=== PATIENT | male | born 1950 | race Caucasian/White ===

== ENCOUNTER → 2023-03-29 | Emergency (ER) | payer OTHER ==
[~2023-03-29] MED LIST: ETOMIDATE 20 MG/10 ML VIAL IV ONE; LABETALOL 20 MG/4ML SYRINGE IV ONE; MANNITOL 20% 500 ML IV ONE; NA CHLORIDE 0.9% 250 ML ONE; ROCURONIUM 50 MG/5 ML VIAL IV ONE; dilTIAZem HCL 25 MG/5 ML VIAL IV ONE; propofoL 1,000 MG/100 ML VIAL IV ONE
--- NOTE | 2023-03-29 18:21 | RAD REPORT ---
EXAM DESCRIPTION: CT - Ct Stroke Brain Wo Cont - 03/29/2023 6:09 pm CLINICAL HISTORY: STROKE ALERT COMPARISON: No comparisons TECHNIQUE: Noncontrast head CT images were obtained without IV contrast. Multiplanar reformats were generated and reviewed. All CT scans are performed using dose optimization technique as appropriate and may include automated exposure control or mA/KV adjustment according to patient size. FINDINGS: Parenchymal hematoma centered on the left parietal regions with adjacent all cytotoxic lily ma. Mass effect with partial effacement of the left lateral ventricle. Mild rightward midline shift, measuring approximately 4 mm. No intraventricular hemorrhage or abnormal extra-axial fluid collections. Midline structures are othe rwise unremarkable. No other evidence of herniation. Mastoid air cells and visualized portions of the paranasal sinuses are clear. No acute bony findings. IMPRESSION: Left parietal parenchymal hemorrhage with adjacent cytotoxic edema and mass effect as ab ove. 4 mm rightward midline shift. Findings may relate to hemorrhagic transformation of infarct. The findings were communicated to Garrett Page on 03/29/2023 at 18:14 hours.
[2023-03-29 18:27] LABS: Absolute Lymphocytes (CBC) 0.7 K/uL (0.7-4.9); Hematocrit 53.9 % (39.6-49.0); Lymphocytes % 4.9 % (15.3-44.8); MCV 84.2 fL (80-100); MPV 8.1 fL (7.6-11.3); Platelets 199 thou/uL (152-406)
--- NOTE | 2023-03-29 18:32 | ER ---
Nurse's Notes [facility] Name: Adrian Sorto Age: 72 yrs Sex: Male : 1950 Arrival Date: 03/29/2023 Time: 17:52 Bed 3 Private MD: Diagnosis: Intraparenchymal intracranial hemorrhage, hypertensive urgency, headache Presentation: 03/29 17:59 Chief complaint: Chief complaint: Spouse and/or significant other states: Was working ph under house approx 1 hour ago, began c/o severe R sided headache, pt found to be confused by , in triage pt unable to states current date or date, talking about unrelated things, continues to c/o headache and nausea, code stroke called overhead. 17:59 Method Of Arrival: Wheelchair ph 18:29 Coronavirus screen: Vaccine status: Patient reports receiving the 2nd dose of the covid ph vaccine. Ebola Screen: No symptoms or risks identified at this time. Initial Sepsis Screen: Does the patient meet any 2 criteria? No. Patient's initial sepsis screen is negative. Does the patient have a suspected source of infection? No. Patient's initial sepsis screen is negative. Risk Assessment: Do you want to hurt yourself or someone else? Patient reports no desire to harm self or others. Onset of symptoms was March 29, 2023. 18:29 Acuity: NOY 2 ph Historical: - Allergies: 18:31 No Known Allergies; ph - Immunization history:: Adult Immunizations unknown. - Social history:: Smoking status: unknown. Screenin:10 [facility] ED Fall Risk Assessment (Adult) Score/Fall Risk Level 0 - 2 = Low Risk. Abuse as6 screen: Denies threats or abuse. Denies injuries from another. Nutritional screening: No deficits noted. Tuberculosis screening: No symptoms or risk factors identified. Assessment: 18:05 General: General: Code stroke called overhead from triage. . kd3 18:10 General: This RN met the patient in the CT scanner to start an IV and draw some lab kd3 work. CT scan showed what appeared to be a bleed. field tech called radiologist to inform/notify of possible bleed. Pt returned to the room for further evaluation. . 18:15 General: IV access obtained in the right A/c. Blood work sent to the lab at this time. .kd3 18:15 General: Appears well groomed, well developed, well nourished, Behavior is cooperative, me1 appropriate for age, anxious, Reports and son report that patient was under the house working and developed a bad headache about an hour before they got here. Pain: Complains of pain in head Pain does not radiate. Pain currently is 10 out of 10 on a pain scale. Quality of pain is described as throbbing, Pain began suddenly, 1 hour ago. Is continuous. Neuro: Level of Consciousness is awake, alert, obeys commands, Oriented to person, situation, Manager Of Product are equal bilaterally Moves all extremities. Full function Gait is steady, Speech with expressive aphasia noted, Facial symmetry appears normal, Pupils are PERRLA, Intact. Cardiovascular: Capillary refill < 3 seconds Patient's skin is warm and dry. Respiratory: Airway is patent Respiratory effort is even, unlabored, Respiratory pattern is regular, symmetrical. 18:17 General: EKG performed in the room by air quality technician . kd3 18:45 General: General: Pt HR on the monitor reading 34, pt became increasingly diaphoretic kd3 and had + LOC. Pt blood pressure had been trending downward up until this point. Provider notified of pt's sudden change in status. Plan to immediately move the patient to the trauma bays for rapid intubation. . 18:47 Reassessment: Pt moved from ER 17 to ER 3. . aa5 18:47 Reassessment: Pt appears pale, shallow relaxed respirations, pt able to speak at this aa5 time. Pt notified of need for intubation by Dr. Sethi. . 18:50 General: Pt being intubated at this time for airway protection. . cm10 18:50 General: Appears Etomidate 20mg IVP . cm10 18:50 General: Rocuronium 80mg IVP. cm10 19:09 Respiratory: Ventilator assessment: ET Tube: 8.0 Ventilator Mode: Assist Control (AC) as6 Tidal Volume: 500 Respiratory Rate: 20 FiO2: 100%. PEEP: 5 HOB > 30 degrees. 19:09 Neuro: [place] Agitation-Sedation Scale (RASS): -2 Light sedation. as6 19:43 General: life flight at bedside, taking over care . as6 Vital Signs: 18:12 BP 192 / 99; Pulse 66; Resp 18; Temp 97.9(O); Pulse Ox 99% ; kd3 18:15 BP 174 / 109; Pulse 69; Resp 18; Pulse Ox 98% on R/A; kd3 18:31 BP 126 / 66; Pulse 61; Resp 14; Pulse Ox 96% on R/A; kd3 18:32 Weight 72.57 kg; Height 5 ft. 8 in. ; me1 18:48 BP 172 / 81; Pulse 69; Resp 12 S; Pulse Ox 100% on Non-rebreather mask; aa5 18:59 BP 169 / 85; Pulse 67; Resp 14; Pulse Ox 100% ; ld1 19:04 BP 155 / 82; Pulse 62; Pulse Ox 100% on ETT ambu; aa5 19:06 BP 155 / 82; Pulse 57; Resp 20 A; Pulse Ox 100% on ETT vent; FiO2 100 %; as6 19:10 BP 150 / 75; Pulse 59; Pulse Ox 98% on ETT vent; aa5 19:20 BP 200 / 95; Pulse 69; Resp 19 A; Pulse Ox 100% on ETT vent; FiO2 100 %; as6 19:30 BP 209 / 115; Pulse 76; Resp 19 A; Pulse Ox 100% on ETT vent; FiO2 100 %; as6 19:34 BP 193 / 97; Pulse 81; Resp 19 A; Pulse Ox 100% on ETT vent; FiO2 100 %; as6 18:32 Body Mass Index 24.33 (72.57 kg, 172.72 cm) me1 Napoleon Coma Score: 18:15 Eye Response: spontaneous(4). Motor Response: obeys commands(6). Verbal Response: kd3 confused(4). Total: 14. NIH Stroke Scale Scores: 18:17 NIHSS Score: 3 kd3 ED Course: 17:55 Patient arrived in ED. ae5 18:03 Ene Sethi MD is Attending Physician. sp3 18:09 CT Stroke Brain w/o Contrast In Process Unspecified. EDMS 18:12 Isabell Chawla, JESSICA is Primary Nurse. me1 18:15 Initial lab(s) drawn, by me, sent to lab. aa5 18:15 Inserted saline lock: 20 gauge in right Blood collected. kd3 18:24 Inserted saline lock: 18 gauge in left forearm, using aseptic technique. ds4 18:31 Triage completed. ph 18:31 Arm band placed on Patient placed in an exam room. ph 18:44 Stroke CXR 1 View In Process Unspecified. EDMS 18:55 Assisted provider with intubation using 8.0 mm ETT via oral route. ET tube secured at ld1 22cm at the teeth. Set up intubation tray. Intubated by Ene Sethi MD Placement verified by CO2 detector w/ + color change, Patient tolerated well. 18:59 Hankins cath inserted, using sterile technique, 16 Fr., by rabble furnace tender, balloon inflated. ld1 19:00 16fr OG tube inserted. ld1 19:10 Chest Single View XRAY In Process Unspecified. EDMS 19:10 Placed in gown. Bed in low position. Call light in reach. Adult w/ patient. Provided as6 Education on: need for transfer . 19:39 Patient transferred, IV remains in place. as6 Administered Medications: 18:20 Drug: Labetalol IV 10 mg IV at calculated rate once Route: IV; Rate: calculated rate; me1 Site: right antecubital; 19:45 Follow up: Response: No adverse reaction; IV Status: Completed infusion; IV Intake: 2ml as6 18:43 Drug: Mannitol IV 20% 1 g/kg 500 ml IV at calculated rate once; Administer over 30 to ld1 60 minutes Volume: 500 ml; Route: IV; Rate: calculated rate; Site: right forearm; 19:47 Follow up: Response: No adverse reaction; IV Status: Completed infusion; IV Intake: as6 500ml 18:50 Drug: Etomidate IVP 20 mg IVP once Route: IVP; Site: left forearm; ld1 19:45 Follow up: Response: No adverse reaction as6 18:50 Drug: Rocuronium IVP 80 mg IVP once Route: IVP; Site: left forearm; ld1 19:45 Follow up: Response: No adverse reaction as6 18:58 Drug: Propofol IV 5 mcg/kg/min IV at calculated rate See Administration Instructions; ld1 Standard concentration 1000 mg / 100 mL; Recommended max rate 50 mcg/kg/min; Titrate 2 mcg/kg/min every 5 minutes to achieve goal (see titration policy); Goal parameter RASS score 0 to -2 Route: IV; Rate: calculated rate; Site: left antecubital; 19:00 Follow up: 30mg IV bolus given per VO at this time. aa5 19:02 Follow up: Rate change 15 mcg/kg/min; Drip rate increased per VO. aa5 19:49 Follow up: Response: No adverse reaction; IV Status: Infusion continued upon transfer; as6 IV Intake: 30ml 19:08 CANCELLED (Duplicate Order): [id number] mg IVP once; Document RASS score. verbal order aa5 by Dr. Sethi 19:18 Drug: niCARdipine IV 5 mg/hr IV at calculated rate See Administration Instructions; as6 (Standard concentration 25 mg / 250 mL NS); Recommended max rate 15 mg/hr; Titrate 2.5 mg/hr as often as every 15 minutes to achieve goal (see titration policy); Goal parameter SBP less than 160 mmHg Route: IV; Rate: calculated rate; Site: right antecubital; 19:47 Follow up: Response: No adverse reaction; IV Status: Infusion continued upon transfer; as6 IV Intake: 50ml Medication: 19:09 VIS not applicable for this client. as6 Intake: 19:45 IV: 2ml; Total: 2ml. as6 19:47 IV: 500ml; Total: 502ml. as6 19:47 IV: 50ml; Total: 552ml. as6 19:49 IV: 30ml; Total: 582ml. as6 Outcome: 18:32 ER care complete, transfer ordered by MD. connors 19:39 Transferred by helicopter to [facility], Transfer form completed. X-rays sent as6 w/ patient. 19:39 critical 19:39 Instructed on the need for transfer, 19:50 Patient left the ED. as6 NIH Stroke Scale - NIH Stroke Score Date: 03/29/2023 Time: 18:17 Total Score = 3 10. Dysarthria (speech clarity - read or repeat words) - 2(Severe) 11. Extinction and Inattention (visual/tactile/auditory/spatial/personal) - 0(No abnormality) 1a. Level of Consciousness (LOC) - 0(Alert) 1b. Level of Consciousness (LOC) (Month \T\ Age) - 0(Both) 1c. LOC Commands (Open \T\ Closes Eyes/Elevator Erector) - 0(Both) 2. Best Gaze (Lateral Gaze Paresis) - 0(Normal) 3. Visual Field Loss - 0(No visual loss) 4. Facial Palsy - 0(Normal) 5a. Left Arm: Motor (10-second hold) - 0(No drift) 5b. Right Arm: Motor (10-second hold) - 0(No drift) 6a. Left Leg: Motor (5-second hold - always test supine) - 0(No drift) 6b. Right Leg: Motor (5-second hold - always test supine) - 0(No drift) 7. Limb Ataxia (finger/nose \T\ heel/vail - test with eyes open) - 0(Absent) 8. Sensory Loss (pinprick arms/legs/face) - 0(Normal) 9. Best Language: Aphasia (description/naming/reading) - 1(Mild to moderate aphasia) Initials: kd3 Signatures: Dispatcher [employer] EDMS Cinda Keane, RN RN aa5 Orion Saunders ds4 Ruthann Muniz, RN RN Yenni Melo RN RN ld1 Ene Sethi MD MD sp3 Eliezer Quiroga RN RN as6 Serenity Adame RN RN kd3 Susan Garcia, RN RN cm10 Isabell Chawla RN RN me1 Shraddha Gallegos ae5 Corrections: (The following items were deleted from the chart) 18:31 17:59 Chief complaint: ph ph 19:14 18:48 BP 172 / 81; Pulse 69bpm; Resp 12bpm; Spontaneous; Pulse Ox 100% RA; aa5 aa5
[2023-03-29 18:33] LABS: Protime INR 1.02
--- NOTE | 2023-03-29 18:33 | EDPHYS ---
Physician Documentation [facility] Name: Adrian Sorto Age: 72 yrs Sex: Male : 1950 Arrival Date: 03/29/2023 Time: 17:52 Bed 3 Private MD: ED Physician Ene Sethi HPI: 03/29 18:26 This 72 yrs old Male presents to ER via Wheelchair with complaints of Headache > 24hrs sp3 Old, CONFUSION. 18:26 72-year-old male with history of hypertension, hyperlipidemia, hypothyroidism presents sp3 to the ED with chief complaint headache and confusion that started 2 hours prior to arrival when patient had sudden onset of headache and symptoms while working on his house. He denies any direct trauma. called a neighbor who came over and assessed him and noticed abnormality and they subsequently came to the ED. No prior history of CVA or any intracranial pathology. He is currently on aspirin 81 milligrams daily and no other anticoagulants. Other meds are typical for his past medical history. Patient denies any other symptoms including changes in vision, neck pain, chest pain, shortness of breath, back pain, abdominal pain, weakness, or any other signs or symptoms on ROS at this time.. Historical: - Allergies: 18:31 No Known Allergies; ph - Immunization history:: Adult Immunizations unknown. - Social history:: Smoking status: unknown. ROS: 18:27 Constitutional: Negative for fever, chills, and weight loss, Eyes: Negative for injury, sp3 pain, redness, and discharge, Neck: Negative for injury, pain, and swelling, Cardiovascular: Negative for chest pain, palpitations, and edema, Respiratory: Negative for shortness of breath, cough, wheezing, and pleuritic chest pain, Abdomen/GI: Negative for abdominal pain, nausea, vomiting, diarrhea, and constipation, Back: Negative for injury and pain, MS/Extremity: Negative for injury and deformity, Skin: Negative for injury, rash, and discoloration, Psych: Negative for depression, anxiety, suicide ideation, homicidal ideation, and hallucinations, Allergy/Immunology: Negative for hives, rash, and allergies, Endocrine: Negative for neck swelling, polydipsia, polyuria, polyphagia, and marked weight changes, 18:27 All other systems are negative, Exam: 18:27 Constitutional: This is a well developed, well nourished patient who is awake, alert, sp3 and in no acute distress. Head/Face: Normocephalic, atraumatic. Eyes: Pupils equal round and reactive to light, extra-ocular motions intact. Lids and lashes normal. Conjunctiva and sclera are non-icteric and not injected. Cornea within normal limits. Periorbital areas with no swelling, redness, or edema. ENT: Nares patent. No nasal discharge, no septal abnormalities noted. External auditory canals are clear. Oropharynx with no redness, swelling, or masses, exudates, or evidence of obstruction, uvula midline. Mucous membranes moist. Neck: Trachea midline, no thyromegaly or masses palpated, and no cervical lymphadenopathy. Supple, full range of motion without nuchal rigidity, or vertebral point tenderness. No Meningismus. Chest/axilla: Normal chest wall appearance and motion. Nontender with no deformity. No lesions are appreciated. Cardiovascular: Regular rate and rhythm with a normal S1 and S2. No gallops, murmurs, or rubs. Normal PMI, no JVD. No pulse deficits. Respiratory: Lungs have equal breath sounds bilaterally, clear to auscultation and percussion. No rales, rhonchi or wheezes noted. No increased work of breathing, no retractions or nasal flaring. Abdomen/GI: Soft, non-tender, with normal bowel sounds. No distension or tympany. No guarding or rebound. No evidence of tenderness throughout. Back: No spinal tenderness. No costovertebral tenderness. Full range of motion. Skin: Warm, dry with normal turgor. Normal color with no rashes, no lesions, and no evidence of cellulitis. MS/ Extremity: Pulses equal, no cyanosis. Neurovascular intact. Full, normal range of motion. Psych: Awake, alert, with orientation to person, place and time. Behavior, mood, and affect are within normal limits. 18:27 Neuro: Neurological exam demonstrates garbled speech and mild confusion. No facial droop or motor weakness or sensory deficits noted. Gait not assessed., Vital Signs: 18:12 BP 192 / 99; Pulse 66; Resp 18; Temp 97.9(O); Pulse Ox 99% ; kd3 18:15 BP 174 / 109; Pulse 69; Resp 18; Pulse Ox 98% on R/A; kd3 18:31 BP 126 / 66; Pulse 61; Resp 14; Pulse Ox 96% on R/A; kd3 18:32 Weight 72.57 kg; Height 5 ft. 8 in. ; me1 18:48 BP 172 / 81; Pulse 69; Resp 12 S; Pulse Ox 100% on Non-rebreather mask; aa5 18:59 BP 169 / 85; Pulse 67; Resp 14; Pulse Ox 100% ; ld1 19:04 BP 155 / 82; Pulse 62; Pulse Ox 100% on ETT ambu; aa5 19:06 BP 155 / 82; Pulse 57; Resp 20 A; Pulse Ox 100% on ETT vent; FiO2 100 %; as6 19:10 BP 150 / 75; Pulse 59; Pulse Ox 98% on ETT vent; aa5 19:20 BP 200 / 95; Pulse 69; Resp 19 A; Pulse Ox 100% on ETT vent; FiO2 100 %; as6 19:30 BP 209 / 115; Pulse 76; Resp 19 A; Pulse Ox 100% on ETT vent; FiO2 100 %; as6 19:34 BP 193 / 97; Pulse 81; Resp 19 A; Pulse Ox 100% on ETT vent; FiO2 100 %; as6 18:32 Body Mass Index 24.33 (72.57 kg, 172.72 cm) me1 NIH Stroke Scale Scores: 18:17 NIHSS Score: 3 kd3 Whatley Coma Score: 18:15 Eye Response: spontaneous(4). Motor Response: obeys commands(6). Verbal Response: kd3 confused(4). Total: 14. MDM: 18:05 Patient medically screened. sp3 18:29 Data reviewed: vital signs, nurses notes, lab test result(s), EKG, radiologic studies. sp3 ED course: Stroke alert was called by triage nurse and patient went directly to CT scan where a significant left-sided intraparenchymal bleed with extension into the lateral ventricle. Mild shift noted. CTA canceled secondary to hemorrhagic bleed. Patient transfer immediately initiated and labetalol 10 mg IV given. Blood pressure did come down from 210 to 174 systolic and we will now start a Cardene drip and 1 g/kg of mannitol IV for osmotic diuresis. Discussed care with [facility] stroke unit who have excepted this patient. Will transfer via air ambulance to their facility. Critical care time total 30 minutes including 20 minutes of direct bedside care and medical direction as well as discussion on critical care with neurology team at [facility]'s ICU.. 18:32 ED course: Labs pending and we will evaluate what we can prior to transport.. sp3 18:55 ED course: Patient had decreased mental status and increased confusion coupled with sp3 bradycardia into the 30s. Patient was immediately moved into large trauma room and patient was intubated for airway protection. After initial 10 mg of labetalol, blood pressure did come down into the 170 range and held steady for about 15 minutes. During the bradycardic episode, blood pressure dropped to 110. Mannitol had been started already at this point. Patient was intubated using etomidate 20 mg and rocuronium 80 mg successfully with 8.0 ET tube using a Mac 4 blade. Orogastric tube was also placed. Chest x-ray is pending. Propofol will be started for combination sedation and blood pressure control. Cardene is ready to go on standby if needed. We will update receiving hospital and flight crew should be here shortly.. 03/29 18:05 Order name: Basic Metabolic Panel; Complete Time: 18:54 3 03/29 18:05 Order name: CBC with Diff sp3 03/29 18:05 Order name: High Sensitivity Troponin; Complete Time: 18:54 3 03/29 18:05 Order name: Protime (+inr); Complete Time: 18:54 3 03/29 18:05 Order name: Ptt, Activated; Complete Time: 18:54 3 03/29 18:36 Order name: Glucose, Ancillary Testing; Complete Time: 18:54 EDMS 03/29 19:13 Order name: ABG Arterial Blood Gas; Complete Time: 19:15 EDMS 03/29 18:05 Order name: CT Stroke Brain w/o Contrast; Complete Time: 18:54 sp3 03/29 18:05 Order name: Stroke CXR 1 View; Complete Time: 19:15 sp3 03/29 19:04 Order name: Chest Single View XRAY; Complete Time: 19:29 em1 03/29 18:05 Order name: EKG; Complete Time: 18:06 3 03/29 18:05 Order name: Cardiac monitoring; Complete Time: 18:18 sp3 03/29 18:05 Order name: EKG - Nurse/Tech; Complete Time: 18:22 3 03/29 18:05 Order name: IV Saline Lock; Complete Time: 18:18 3 03/29 18:05 Order name: Labs collected and sent; Complete Time: 18:18 3 03/29 18:05 Order name: NPO; Complete Time: 18:18 sp3 03/29 18:05 Order name: O2 Per Protocol; Complete Time: 18:18 3 03/29 18:05 Order name: O2 Sat Monitoring; Complete Time: 18:18 sp3 Administered Medications: 18:20 Drug: Labetalol IV 10 mg IV at calculated rate once Route: IV; Rate: calculated rate; me1 Site: right antecubital; 19:45 Follow up: Response: No adverse reaction; IV Status: Completed infusion; IV Intake: 2ml as6 18:43 Drug: Mannitol IV 20% 1 g/kg 500 ml IV at calculated rate once; Administer over 30 to ld1 60 minutes Volume: 500 ml; Route: IV; Rate: calculated rate; Site: right forearm; 19:47 Follow up: Response: No adverse reaction; IV Status: Completed infusion; IV Intake: as6 500ml 18:50 Drug: Etomidate IVP 20 mg IVP once Route: IVP; Site: left forearm; ld1 19:45 Follow up: Response: No adverse reaction as6 18:50 Drug: Rocuronium IVP 80 mg IVP once Route: IVP; Site: left forearm; ld1 19:45 Follow up: Response: No adverse reaction as6 18:58 Drug: Propofol IV 5 mcg/kg/min IV at calculated rate See Administration Instructions; ld1 Standard concentration 1000 mg / 100 mL; Recommended max rate 50 mcg/kg/min; Titrate 2 mcg/kg/min every 5 minutes to achieve goal (see titration policy); Goal parameter RASS score 0 to -2 Route: IV; Rate: calculated rate; Site: left antecubital; 19:00 Follow up: 30mg IV bolus given per MD VO at this time. aa5 19:02 Follow up: Rate change 15 mcg/kg/min; Drip rate increased per MD VO. aa5 19:49 Follow up: Response: No adverse reaction; IV Status: Infusion continued upon transfer; as6 IV Intake: 30ml 19:08 CANCELLED (Duplicate Order): mg IVP once; Document RASS score. verbal order aa5 by Dr. Sethi 19:18 Drug: niCARdipine IV 5 mg/hr IV at calculated rate See Administration Instructions; as6 (Standard concentration 25 mg / 250 mL NS); Recommended max rate 15 mg/hr; Titrate 2.5 mg/hr as often as every 15 minutes to achieve goal (see titration policy); Goal parameter SBP less than 160 mmHg Route: IV; Rate: calculated rate; Site: right antecubital; 19:47 Follow up: Response: No adverse reaction; IV Status: Infusion continued upon transfer; as6 IV Intake: 50ml Disposition Summary: 03/29/23 18:32 Transfer Ordered Notes: Transfer Location: [facility] sp3 Reason: Higher level of care sp3 Condition: Stable sp3 Problem: new sp3 Symptoms: have worsened sp3 Accepting Physician: [facility]'s neurological ICU(03/29/23 19:50) as6 Diagnosis - Intraparenchymal intracranial hemorrhage, hypertensive urgency, headache sp3 Forms: - Medication Reconciliation Form sp3 - SBAR form sp3 NIH Stroke Scale - NIH Stroke Score Date: 03/29/2023 Time: 18:17 Total Score = 3 10. Dysarthria (speech clarity - read or repeat words) - 2(Severe) 11. Extinction and Inattention (visual/tactile/auditory/spatial/personal) - 0(No abnormality) 1a. Level of Consciousness (LOC) - 0(Alert) 1b. Level of Consciousness (LOC) (Month \T\ Age) - 0(Both) 1c. LOC Commands (Open \T\ Closes Eyes/[employer] Teacher) - 0(Both) 2. Best Gaze (Lateral Gaze Paresis) - 0(Normal) 3. Visual Field Loss - 0(No visual loss) 4. Facial Palsy - 0(Normal) 5a. Left Arm: Motor (10-second hold) - 0(No drift) 5b. Right Arm: Motor (10-second hold) - 0(No drift) 6a. Left Leg: Motor (5-second hold - always test supine) - 0(No drift) 6b. Right Leg: Motor (5-second hold - always test supine) - 0(No drift) 7. Limb Ataxia (finger/nose \T\ heel/vail - test with eyes open) - 0(Absent) 8. Sensory Loss (pinprick arms/legs/face) - 0(Normal) 9. Best Language: Aphasia (description/naming/reading) - 1(Mild to moderate aphasia) Initials: kd3 Signatures: Dispatcher [employer] EDMS Cinda Keane, RN RN [email or web address] Ruthann Muniz RN RN Yenni Melo RN RN ld1 Ene Sethi MD MD sp3 Eliezer Quiroga RN RN as6 Isabell Chawla RN RN me1 Corrections: (The following items were deleted from the chart) 18:31 18:29 ED course: Stroke alert was called by triage nurse and patient went sp3 directly to CT scan where a significant left-sided intraparenchymal bleed with extension into the lateral ventricle. Mild shift noted. CTA canceled secondary to hemorrhagic bleed. Patient transfer immediately initiated and labetalol 10 mg IV given. Blood pressure did come down from 210 to 174 systolic and we will now start a Cardene drip and 1 g/kg of mannitol IV for osmotic diuresis. Discussed care with [facility] stroke unit who have excepted this patient. Will transfer via air ambulance to their facility.. sp3 18:48 18:06 Head Angio+CT.RAD.BRZ ordered. EDMS EDMS 18:50 18:06 Neck Angio+CT.RAD.BRZ ordered. EDME EDMS 19:05 18:05 Stroke Swallow Screen ordered. sp3 as6 19:08 19:02 Propofol IVP 30 mg IVP once; Document RASS score. verbal order by Dr. steven Sethi ordered. ld1 19:08 19:05 Chest Single View+RAD.RAD.BRZ ordered. EDMS EDMS 19:50 18:32 [facility] neurological ICU sp3 as6
[2023-03-29 18:42] LABS: Potassium 3.1 mEq/L (3.5-5.1); Troponin High Sensitivity 20.1 pg/mL (<58.9)
[2023-03-29 19:12] LABS: Blood Gas Oxyhemoglobin 97.4 % (94-97); Blood O2 Saturation 99.6 % (92-98.5)
[2023-03-29 19:13] LABS: Arterial Blood Carboxyhemoglob 0.8 % (0-1.5)
--- NOTE | 2023-03-29 19:14 | RAD REPORT ---
EXAM DESCRIPTION: [place] Single View03/29/2023 6:42 pm CLINICAL HISTORY: stroke alert COMPARISON: Chest Pa And Lat (2 Views) dated 06/29/2017; CHEST PA AND LAT 2 VIEW dated 12/29/2014 TECHNIQUE: Portable AP view of the chest. FINDINGS: Left basilar patchy airspace opacity. No pneumothorax or effusion. The cardiomediastinal c ontours are unremarkable. IMPRESSION: Left basilar patchy airspace opacification, may represent atelectasis or airspace diseas e.
--- NOTE | 2023-03-29 19:22 | RAD REPORT ---
[facility] 7:08 pm CLINICAL HISTORY: POST ETT COMPARISON: Chest Single View dated 03/29/2023; Chest Pa And Lat (2 Views) dated 06/29/2017; CHEST PA AND LAT 2 VIEW dated 12/29/2014 TECHNIQUE: Portable AP view of the chest. FINDINGS: Endotracheal tube tip projects 6.6 cm above the ro. Enteric tube are projects into the stomach. Mild central interstitial prominence, stable. The lungs are clear. No pneumothorax or effu shama. The cardiomediastinal contours are unremarkable. IMPRESSION: Satisfactory positioning of the endotracheal tube. Stable mild central interstitial prom inence.
[2023-03-29 20:00] LABS: Platelet Estimate ADEQ; White Blood Cell Scan OK (OK)
[2023-03-29 20:01] LABS: Blood Morphology Comment NOT SEEN (NOT SEEN)
[2023-03-30 00:38] VITALS: TEMP 97.9; O2SAT 100
[2023-03-30 00:50] VITALS: BP 193/97
--- NOTE | 2023-03-30 13:24 | EKG ---
Test Date: 2023-03-29 Test Time: 18:17:49 Solar Engineer: PATRICIA MEASUREMENT RESULTS: Intervals: Rate: 73 W[place]: 274 QRSD: 166 QT: 456 QTc: 502 [place]: P: 73 W[place]: 274 QRS: -40 T: 119 INTERPRETIVE STATEMENTS: Sinus rhythm with marked sinus arrhythmia with 1st degree AV block with occasional premature ventricular complexes Right atrial enlargement Left axis deviation Left bundle branch block Abnormal ECG No previous ECG available for comparison Electronically Signed On 03-30-23 13:22:30 [employer] by Trino Emery
== END ==
LOC: ER 17:52
DX: I62.9 Nontraumatic intracranial hemorrhage, unspecified (principal); I16.0 Hypertensive urgency; R29.703 NIHSS score 3
CPT/HCPCS: 93005; 85025; 80048; 36415; 85610; 82947; 85730; 84484; 70450; 71045 ×2; 82805; 31500; 51702; 99285; J2704; J7050